=== PATIENT | female | born 1945 | race Caucasian/White ===

== ENCOUNTER 2018-05-28 09:41 | Day surgery (SDC) | payer MEDICARE, BC, SELFPAY ==
[2018-05-28 11:39] VITALS: BP 157/86; PULSE 61; RESP 16; TEMP 36.3; O2SAT 100; BMI 26.2
[2018-05-28] MEDS: PROPARACAINE 0.5% OPHTH SOL 2 DROPS EYE-OP (11:54)
[2018-05-28] MEDS: CATARACT EYE COMPOUND (10 DROPS/SYRINGE) 3 DROPS EYE-OP (11:54)
--- NOTE | 2018-05-28 12:17 | PM.PREOP ---
Pre-operative Note Interval Note History & Physical reviewed/Exam performed by Physician: No Changes to H&P: No
--- NOTE | 2018-05-28 12:17 | PM.OP.1 ---
Operative Date/Time/Diagnoses Pre-op diagnosis: Nuclear Cataract Left eye Post-op diagnosis: same Procedure & Clinicians Surgeon: Cresencio Carrillo Anesthesia Type: MAC +/- and Sedation Operative Notes Procedure in detail: Patient brought to the operating suite. Tetracaine drops placed in the left eye. The marking instrument was used to kevin the vertical and horizontal meridian. Patient was prepped and draped in sterile manner. Wire lid speculum was placed in the eye. The marking instrument was used to kevin karen 170 degree meridian. Betadine drops were placed on the eye. This was irrigated. Lidocaine jelly was placed on the eye. A paracentesis port was created with a side-port blade. 0.1 mL 1% preservative free lidocaine was injected into the anterior chamber. The anterior chamber was deepened with viscoelastic. 2.6 mm keratome was used to create a temporal clear corneal incision. Cystotome and Utrata forceps were used to create continuous tear capsulorrhexis. Balanced salt solution was used to hydro dissect the nucleus. The phacoemulsification handpiece was inserted and the nucleus was removed using the stop and chop technique. The irrigation aspiration handpiece was inserted and the remaining cortex was removed. Anterior chamber was deepened with viscoelastic. An Amato SBS342 intraocular lens with a power of 15.5 was injected into the capsular bag. Irrigation aspiration handpiece was inserted and the remaining viscoelastic was removed. The lens was rotated to [id number] degree meridian. Incision was hydrated with balanced salt solution and found to be leak free with pressure with Weck-Cristal sponges. 0.1 mL Vigamox injected anterior chamber. 0.3 mL Kenalog 10 mg was injected subconjunctivally. Lid speculum was removed. The patient left the operating room in excellent condition. Complications: none Condition: stable Disposition: same day surgery
[2018-05-28] MEDS: PHENYLEPHRINE/LIDOCAINE VIAL (OR) 0.2 ML EYE-OP (12:55)
[2018-05-28] MEDS: TETRACAINE 0.5% OPHTH DROPS 4 ML 2 DROPS EYE-OP (12:56)
[2018-05-28] MEDS: TRIAMCINOLONE 50 MG/5 ML VIAL INJ (12:56)
[2018-05-28] MEDS: LIDOCAINE JELLY 2% 5 ML 1 APPLIC TOP (12:56)
[2018-05-28] MEDS: CHONDROIDTIN/SOD HYALURONATE 1.05 ML SYRINGE INTRAOCULA (12:56)
[2018-05-28] MEDS: MOXIFLOXACIN OPHTH DROPS 3 ML BOTTLE 2 DROPS INJ (12:56)
[2018-05-28] MEDS: BALANCED SALT IRRIG SOLN NO.2 500 ML, EPINEPHrine 1 MG IRR (12:57)
[2018-05-28 13:25] VITALS: BP 126/79; PULSE 68; RESP 16; TEMP 36.3; O2SAT 99
== END 2018-05-28 13:27 | disposition home or self-care (01) ==
LOC: OR 09:47
PROVIDERS: PCP Family Medicine Geriatric Medicine; Visit Provider Ophthalmology
DX: H25.12 Age-related nuclear cataract, left eye (principal); J45.909 Unspecified asthma, uncomplicated
CPT/HCPCS: J0171; J2250; J3010; J3301; V2787

== ENCOUNTER 2018-06-11 12:45 | Day surgery (SDC) | payer MEDICARE, BC, SELFPAY ==
[2018-06-11 13:16] VITALS: BP 146/96; PULSE 69; RESP 16; TEMP 36.6; O2SAT 99; BMI 26.1
[2018-06-11] MEDS: PROPARACAINE 0.5% OPHTH SOL 2 DROPS EYE-OP (13:23)
[2018-06-11] MEDS: CATARACT EYE COMPOUND (10 DROPS/SYRINGE) 3 DROPS EYE-OP (13:24)
--- NOTE | 2018-06-11 14:30 | PM.PREOP ---
Pre-operative Note Interval Note History & Physical reviewed/Exam performed by Physician: No Changes to H&P: No
--- NOTE | 2018-06-11 14:30 | PM.OP.1 ---
Operative Date/Time/Diagnoses Pre-op diagnosis: Nuclear cataract right eye Procedure & Clinicians Procedure: Cataract Surgery Same procedure as scheduled: Yes Surgeon: Cresencio Carrillo Anesthesia Type: MAC +/- and Sedation Operative Notes Procedure in detail: Patient brought to the operating suite. Tetracaine drops placed in the right eye. Marking instrument was used to kevin the vertical and horizontal meridians. Patient was prepped and draped in sterile manner. Wire lid speculum was placed in the eye. Marking instrument was used to kevin the 10 degree meridian. Betadine drops were placed on the eye. This was irrigated. Lidocaine jelly was placed on the eye. A paracentesis port was created with a side-port blade. 0.1 mL 1% preservative free lidocaine was injected into the anterior chamber. The anterior chamber was deepened with viscoelastic. 2.6 mm keratome was used to create a temporal clear corneal incision. Cystotome and Utrata forceps were used to create continuous tear capsulorrhexis. Balanced salt solution was used to hydro dissect the nucleus. The phacoemulsification handpiece was inserted and the nucleus was removed using the stop and chop technique. The irrigation aspiration handpiece was inserted and the remaining cortex was removed. Anterior chamber was deepened with viscoelastic. An Amato [id number] intraocular lens with a power of 16.0 was injected into the capsular bag. Irrigation aspiration handpiece was inserted and the remaining viscoelastic was removed. The lens was rotated to the 10 degree meridian. Incision was hydrated with balanced salt solution and found to be leak free with pressure with Weck-Cristal sponges. 0.1 mL Vigamox injected anterior chamber. 0.3 mL Kenalog 10 mg was injected subconjunctivally. Lid speculum was removed. The patient left the operating room in excellent condition. Complications: none Condition: stable Disposition: same day surgery
[2018-06-11] MEDS: MOXIFLOXACIN OPHTH DROPS 3 ML BOTTLE 2 DROPS INJ (14:39)
[2018-06-11] MEDS: PHENYLEPHRINE/LIDOCAINE VIAL (OR) 0.2 ML EYE-OP (14:39)
[2018-06-11] MEDS: TRIAMCINOLONE 50 MG/5 ML VIAL INJ (14:40)
[2018-06-11] MEDS: LIDOCAINE JELLY 2% 5 ML 1 APPLIC TOP (14:40)
[2018-06-11] MEDS: TETRACAINE 0.5% OPHTH DROPS 4 ML 2 DROPS EYE-OP (14:40)
[2018-06-11] MEDS: CHONDROIDTIN/SOD HYALURONATE 1.05 ML SYRINGE INTRAOCULA (14:40)
[2018-06-11] MEDS: BALANCED SALT IRRIG SOLN NO.2 500 ML, EPINEPHrine 1 MG IRR (14:41)
[2018-06-11 14:56] VITALS: BP 143/90; PULSE 75; RESP 16; TEMP 36.4; O2SAT 95
--- NOTE | 2018-06-11 15:04 | SUR.PHASEII ---
Patient vss post procedure. tolerated po without any nausea. no complaints of eye pain. stable to dress for discharge.
== END 2018-06-11 15:16 ==
LOC: OR 12:47
PROVIDERS: PCP Family Medicine Geriatric Medicine; Visit Provider Ophthalmology
DX: H25.11 Age-related nuclear cataract, right eye (principal); J45.909 Unspecified asthma, uncomplicated
CPT/HCPCS: J0171; J2250; J3010; J3301; V2787